=== PATIENT | male | born 1965 | race Two or more races ===

== ENCOUNTER 2023-12-02 10:00 | Outpatient (CLI) | payer OTHER | END 2023-12-02 10:07 | disposition home or self-care (01) | LOC: RAD 10:00 | PROVIDERS: ATTEND Obstetrics & Gynecology Obstetrics | DX: M99.03 Segmental and somatic dysfunction of lumbar region (principal); M99.04 Segmental and somatic dysfunction of sacral region; M99.05 Segmental and somatic dysfunction of pelvic region ==